=== PATIENT | male | born 1995 | race Hispanic/Latino ===

== ENCOUNTER 2021-07-08 19:10 | Emergency (ER) | payer SELFPAY ==
[~2021-07-08] VITALS: Ht 172.7 cm; Wt 86.2 kg
[2021-07-08] MEDS ORDERED: MORPHINE SULFATE INJ 4 MG/ML INJ 1ML IV STA (19:27)
[2021-07-08] MEDS ORDERED: ONDANSETRON HCL INJ 2MG/ML 2ML 2 MG/ML VIAL IV STA (19:27)
[2021-07-08] MEDS ORDERED: SODIUM CHLORIDE 0.9% 50ML 50 ML ONE (19:43)
[2021-07-08] MEDS ORDERED: IOPAMIDOL 370 MG/ML 200 ML INFUS..BTL INJ ONE (19:43)
[2021-07-08 21:31] VITALS: BP 144/88
[2021-07-08] MEDS ORDERED: ACETAMINOPHEN-1 EAC3 PO (21:34)
[2021-07-08] MEDS ORDERED: ONDANSETRON ODT4 MG PO (21:34)
== END 2021-07-08 21:40 | disposition home or self-care (01) ==
LOC: FSED 19:15
DX: R10.32 Left lower quadrant pain (principal); F17.210 Nicotine dependence, cigarettes, uncomplicated
CPT/HCPCS: 74177; 80048; 80076; 81003; 85025; 99284; J2270; J2405; Q9967